=== PATIENT | female | born 2005 | race Caucasian/White ===

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

== ENCOUNTER 2023-04-18 11:18 | Emergency (ER) | payer MEDICAID, OTHER ==
[~2023-04-18] VITALS: Ht 172.7 cm; Wt 77.1 kg
[2023-04-18 11:19] VITALS: BP 125/82; PULSE 63; RESP 18; TEMP 97.9; O2SAT 100
[2023-04-18] MEDS ORDERED: NACL 0.9% 1,000 ML IV ONE (12:20)
[2023-04-18] MEDS ORDERED: KETOROLAC 30 MG/ML VIAL IVP ONE (12:20)
[2023-04-18] MEDS ORDERED: ONDANSETRON 4 MG/2 ML VIAL IVP ONE (12:20)
[2023-04-18 13:12] LABS: ANION GAP 11.5 (8-16); CALCIUM 8.6 mg/dL (8.5-10.1); CARBON DIOXIDE 24.7 mmol/L (21-32); CREATININE 0.8 mg/dL (0.6-1.3); POTASSIUM 3.2 mmol/L (3.5-5.1)
[2023-04-18 13:22] LABS: BASOPHILS % (AUTO) 0.1 % (0.0-2.0); HEMATOCRIT 39.1 % (36-48); HEMOGLOBIN 13.1 g/dL (12.0-16.0); LYMPHOCYTES # (AUTO) 0.3 K/uL (2.5-16.5); LYMPHOCYTES % (AUTO) 3.7 % (20.5-51.1); MEAN CORPUSCULAR HEMOGLOBIN 29 pg (27-31); MEAN CORPUSCULAR HGB CONC 34 g/dL (33-37); MEAN CORPUSCULAR VOLUME 85.5 fL (80-94); MONOCYTES # (AUTO) 0.9 K/uL (0.8-1.0); MONOCYTES % (AUTO) 10.2 % (1.7-9.3); NEUTROPHILS # (AUTO) 7.5 K/uL (1.8-7.7); PLATELET COUNT (AUTO) 215 K/uL (140-450); RED BLOOD CELL COUNT(AUTO) 4.57 MIL/uL (4.20-5.40); RED CELL DISTRIBUTION WIDTH 13.6 % (11.6-13.7); WHITE BLOOD COUNT (AUTO) 8.8 K/uL (4.5-11.0)
[2023-04-18] MEDS ORDERED: IBUP-2213 PO (14:12)
[2023-04-18] MEDS ORDERED: ONDA8TAB87 PO (14:12)
[2023-04-18 14:14] LABS: FLU A ANTIGEN POSITIVE (NEGATIVE); FLU B ANTIGEN NEGATIVE (NEGATIVE)
[2023-04-18] MEDS ORDERED: TAM75 PO (14:21)
[2023-04-18 15:09] VITALS: BP 125/82; PULSE 63; RESP 18; TEMP 97.9; O2SAT 100
== END 2023-04-18 15:09 | disposition home or self-care (01) ==
LOC: MED 11:18
DX: R10.13 Epigastric pain (principal); R11.2 Nausea with vomiting, unspecified; R19.7 Diarrhea, unspecified; Z20.822 Contact with and (suspected) exposure to COVID-19; J10.1 Influenza due to other identified influenza virus with other respiratory manifestations
CPT/HCPCS: 36415; 80048; 81002; 81025; 83690; 85025; 87426; 87804; 96361; 96374; 96375; 99284; J1885; J2405; J7030